=== PATIENT | male | born 1965 | race Caucasian/White ===

== ENCOUNTER 2024-06-14 07:00 | Day surgery (SDC) | payer OTHER, SELFPAY ==
[2024-06-11 14:24] VITALS: BMI 35.2
[2024-06-14 07:40] VITALS: BP 153/61; PULSE 92; RESP 18; TEMP 36.1; O2SAT 93
--- NOTE | 2024-06-14 08:13 | P.PNANES_ITS ---
[facility] [place] Disclaimer: The information contained in this section may have been updated after the patient was seen, as this information can be updated by other users. Medical History History of COVID-19 Migraine History of gastroesophageal reflux (GERD) Hyperlipidemia Hypertension GIST (gastrointestinal stroma tumor), malignant, colon Surgical History History of colon resection History of appendectomy H/O knee surgery History of hernia surgery History of abdominal surgery Hx of shoulder surgery Family History Father Lung cancer Sister Ovarian cancer Social History Smoking Status: Never smoker alcohol intake: current substance use type: denies use current occupational status: retired Travel in the last 8 weeks: Outside the [facility] caffeine: Yes [facility] Anesthesia Checklist Patient Identification Patient Identification: Arm Band Structural Data Admitted From: Home Planned Operative Procedure/s: Colonoscopy Consent for Planned Operative Procedure(s) Verified: Yes Verified Documents: Surgical Consent and History and Physical NPO Status Verified Time NPO: 03:00 (finished prep) Additional verifications Anesthesia Reactions: No Airway Assessment Mallampati Score:: Class II C-Spine Mobility Assessed: Yes TMJ Mobility Assessed: Yes Dentition: Good Dentition Neurological Assessment Level of Consciousness: Awake, Alert and Appropriate Anesthesia Plan Anesthesia Risk discussed: Yes Anesthesia Plan: Verified ASA Class: II Anesthesia Type: MAC
[2024-06-14 08:25] VITALS: O2SAT 96
--- NOTE | 2024-06-14 08:36 | EXP.HP ---
History of Present Illness *Admission Date: 06/14/24 *Reason for visit:: Screening *History of present illness: Mr. Nguyễn is a 58-year-old gentleman who is here for screening colonoscopy. The examination is deemed medically necessary for screening colonoscopy. The patient has been seen, interviewed and examined prior to the procedure by both myself and the anesthesia provider. [facility] Disclaimer: The information contained in this section may have been updated after the patient was seen, as this information can be updated by other users. Medical History (Updated 06/14/24 @ 08:37 by Jose Mcgill II, MD) History of COVID-19 Migraine History of gastroesophageal reflux (GERD) Hyperlipidemia Hypertension GIST (gastrointestinal stroma tumor), malignant, colon Surgical History History of colon resection History of appendectomy H/O knee surgery History of hernia surgery History of abdominal surgery Hx of shoulder surgery Family History Father Lung cancer Sister Ovarian cancer Social History (Updated 06/14/24 @ 08:14 by Prasad Patel CRNA) Smoking Status: Never smoker alcohol intake: current substance use type: denies use current occupational status: retired Travel in the last 8 weeks: Outside the continental [place] caffeine: Yes Have you lived/traveled outside [place] in past 30 days?: No Contact w/someone who lives/traveled outside US past 30 days?: No Exposure to someone with infectious disease in past 14 days?: No Do you have a fever (greater than 100.4 F or 38 C)?: No Have you tested positive for COVID-19: No Exposed to someone with COVID-19 in past 14 days?: No Do you have a sore throat?: No Do you have a cough?: No Do you have any weakness?: No Are you experiencing any nausea/vomitting?: No Do you have any diarrhea?: No Are you experiencing any unusual bleeding?: No Do you have any muscle aches/pain?: No Do you have any abdominal pain?: No Are you experiencing loss of taste or smell?: No Review of Systems Review of Systems Review of systems (narrative): Negative *Cardiovascular Comments: Negative *Gastrointestinal Comments: Negative *Genitourinary Comments: Negative *Musculoskeletal Comments: Negative *Neurologic Comments: Negative Meds Home Medications and Allergies Home Medications ?Medication ?Instructions ?Recorded ?Confirmed ?Type sodium,potassium,mag sulfates 17.5 See Rx Instructions PO .COMPLEX 05/31/24 Rx gram-3.13 gram-1.6 gram oral soln #354 mL (Suprep Bowel Prep Kit) benazepril 20 1 tab PO DAILY 06/11/24 06/11/24 History mg-hydrochlorothiazide 12.5 mg tablet ondansetron HCl 4 mg tablet 4 mg PO Q8H PRN . 06/11/24 06/11/24 History rosuvastatin 5 mg tablet 5 mg PO DAILY 06/11/24 06/11/24 History New Prescriptions to Start Prescriptions: Allergies Allergy/AdvReac Type Severity Reaction Status Date / Time No Known Allergies Allergy Verified 06/14/24 07:38 Exam Data for Last 24 hours Vital signs and Labs for Last 24 Hours: Temp Pulse Resp BP Pulse Ox O2 Del Method O2 Flow Rate 97.0 F L 92 H 18 153/61 H 93 L Nasal Cannula 5 06/14/24 07:40 06/14/24 07:40 06/14/24 07:40 06/14/24 07:40 06/14/24 07:40 06/14/24 08:25 06/14/24 08:25 I & O for Last 24 hours: Intake & Output 06/11/24 06/12/24 06/13/24 06/14/24 23:59 23:59 23:59 23:59 Weight 245 lb *Routine HEENT Exam Head: Present normocephalic Eye: Present EOMI and PERRL ENT: Present mucous membranes moist *Routine Neck Exam Neck: Present supple *Routine Respiratory Exam Respiratory: Present CTA bilaterally *Routine Cardiovascular Exam Cardiovascular: Present RRR *Routine Abdominal Exam Abdominal: Present soft and normoactive bowel sounds; Absent tenderness *Routine Rectal Exam Rectal:: deferred *Routine Genitalia Exam Genitalia:: deferred *Routine Extremities Exam Extremities: Absent cyanosis, clubbing or edema *Routine Skin Exam Skin: Present warm; Absent rash *Routine Neurological Exam Neurological: Present alert and oriented X3 Assessment and Plan *Assessment and plan (1) Screening for colon cancer: Status: Acute Category: Medical Code(s): Z12.11 - Encounter for screening for malignant neoplasm of colon Plan A/P: 1. Screening for colon cancer is the preprocedural diagnosis. The patient will be anesthetized/sedated using MAC sedation. The patient has been seen and examined. Cardiac and lung assessment prior to the examination is stable. Proceed with planned screening colonoscopy
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
[2024-06-14 08:52] VITALS: BP 89/58; PULSE 80; RESP 16; TEMP 36.1; O2SAT 92
[2024-06-14 09:02] VITALS: BP 91/57; PULSE 77; RESP 16; O2SAT 96
[2024-06-14 09:12] VITALS: BP 93/40; PULSE 78; RESP 16; O2SAT 95
[2024-06-14 09:22] VITALS: BP 110/68; PULSE 76; RESP 17; O2SAT 95
== END 2024-06-14 09:35 | disposition home or self-care (01) ==
PROVIDERS: PCP Nurse Practitioner Family; Visit Provider Internal Medicine Gastroenterology
PROC: 0DJD8ZZ Inspection of Lower Intestinal Tract, Via Natural or Artificial Opening Endoscopic (ICD-10-PCS; CPT 45378; principal; 2024-06-14 08:30)
DX: K57.30 Diverticulosis of large intestine without perforation or abscess without bleeding (principal); K64.1 Second degree hemorrhoids; Z12.11 Encounter for screening for malignant neoplasm of colon; Z85.00 Personal history of malignant neoplasm of unspecified digestive organ
CPT/HCPCS: 45378